=== PATIENT | female | born 1965 | race Caucasian/White ===

== ENCOUNTER → 2022-01-16 | Day surgery (SDC) | payer OTHER ==
[~2022-01-16] MED LIST: AMARYL4 MG PO; BENTYL 20MG TAB20 MG PO; CLARITIN10 MG PO; CLONAZEPAM0.25 MG PO; DIFLUCAN100 MG PO; ECOTRIN81 MG PO; LOMOTIL 2.5-0.1 EACH PO; NAPROXEN500 MG PO; NORCO 7.5-3251 EACH PO; NOVOLOG MI100 UNIT/1 SC; ONDANSETRON HCL8 MG PO; PEPCID20 MG PO; PERCOCET 10-321 EACH PO; PROTONIX40 MG PO; ROPINIROLE HCL4 M1 PO; TRAZODONE HCL50 MG PO; VISTARIL 50 MG50 MG PO; ZOLOFT50 MG PO
== END | disposition home or self-care (01) ==
LOC: OR 07:35
DX: K21.00 Gastro-esophageal reflux disease with esophagitis, without bleeding (principal); K31.9 Disease of stomach and duodenum, unspecified; K31.7 Polyp of stomach and duodenum; G25.81 Restless legs syndrome; E11.9 Type 2 diabetes mellitus without complications; T66.XXXA Radiation sickness, unspecified, initial encounter; E66.8 Other obesity; F41.9 Anxiety disorder, unspecified; F32.A Depression, unspecified; Z86.010 Personal history of colon polyps; Z88.5 Allergy status to narcotic agent; Z68.37 Body mass index [BMI] 37.0-37.9, adult; Z79.82 Long term (current) use of aspirin; Z79.4 Long term (current) use of insulin; Z79.899 Other long term (current) drug therapy; Z20.822 Contact with and (suspected) exposure to COVID-19
CPT/HCPCS: 82962; J2405; J2704; J3010; J7040